=== PATIENT | male | born 1965 | race Two or more races ===

== ENCOUNTER 2017-08-06 12:05 | Emergency (ER) | payer OTHER ==
--- NOTE | 2017-08-06 13:43 | RAD ---
Indication: Stepped on a nail. Pulled out. Assess for retained foreign body. Comparison: April 14, 2016 LEFT ankle exam. Technique: AP, lateral, and oblique views LEFT foot. Report: No conspicuous retained foreign body at the plantar aspect of the foot corresponding with the marker indicating the site of clinical concern. Plantar soft tissue swelling noted. Negative for fracture or malalignment. IMPRESSION: No conspicuous retained foreign body evident.
[2017-08-06] MEDS ORDERED: Ciprofloxacin TAB* 500 MG PO ONE (13:56)
[2017-08-06 14:21] VITALS: BP 143/84
--- NOTE | 2017-08-06 14:33 | ED ---
Lynette Christensen Emily, scribed for Emanuel Davis MD on 08/06/17 at 1302 . Lower Extremity - HPI Summary HPI Summary: This patient is a 51 year old M presenting to [facility] with a chief complaint of pain in left foot s/p stepping on nail one hour ago. Nail punctured through the patients sneaker. Pt reports nail went deep into my foot. The patient rates the pain 8/10 in severity. Patient reports having a tetanus shot last year. - History of Current Complaint Chief Complaint: EDExtremityLower Stated Complaint: STEPPED ON NAIL/LT FOOT Time Seen by Provider: 08/06/17 12:26 Hx Obtained From: Patient Mechanism Of Injury: Other - Stepping on nail Onset of Pain: Immediate, Hours Onset/Duration: Still Present Severity Initially: Severe Severity Currently: Severe Pain Intensity: 8 Pain Scale Used: 0-10 Numeric Timing: Constant, Lasting Hours Location: Is Discrete @ - L foot Aggravating Factor(s): Nothing Alleviating Factor(s): Nothing - Allergies/Home Medications Allergies/Adverse Reactions: Allergies Allergy/AdvReac Type Severity Reaction Status Date / Time No Known Allergies Allergy Verified 08/06/17 12:16 PMH/Surg Hx/FS Hx/Imm Hx Previously Healthy: Yes Endocrine/Hematology History: Denies: Hx Anticoagulant Therapy, Hx Diabetes Cardiovascular History: Denies: Hx Congestive Heart Failure, Hx Hypertension Musculoskeletal History: Reports: Other Musculoskeletal History - HISTORY OF BILATERAL KNEE ARTHROSCOPY R/T KNEE DISLOCATION Sensory History: Reports: Hx Contacts or Glasses - GLASSES Denies: Hx Hearing Aid Opthamlomology History: Reports: Hx Contacts or Glasses - GLASSES - Surgical History Surgery Procedure, Year, and Place: 1997 LEFT KNEE ARTHROSCOPIC SURGERY, [facility] [place]. 2002 RIGHT KNEE ARTHROSCOPIC SURGERY, [facility] [place] Hx Anesthesia Reactions: No - Immunization History Date of Tetanus Vaccine: 2016 Infectious Disease History: No Infectious Disease History: Denies: Traveled Outside the [place] in Last 30 Days - Family History Known Family History: Positive: None - Social History Alcohol Use: None Substance Use Type: Reports: None Smoking Status (MU): Light Every Day Tobacco Smoker Review of Systems Negative: Fever Positive: Other - Left foot pain All Other Systems Reviewed And Are Negative: Yes Physical Exam Triage Information Reviewed: Yes Vital Signs On Initial Exam: Initial Vitals Temp Pulse Resp BP Pulse Ox 97.6 F 90 16 123/79 98 08/06/17 12:13 08/06/17 12:13 08/06/17 12:13 08/06/17 12:13 08/06/17 12:13 Vital Signs Reviewed: Yes Appearance: Positive: Well-Appearing, No Pain Distress Skin: Positive: Warm, Skin Color Reflects Adequate Perfusion, Dry, Other - Small puncture wound L foot Head/Face: Positive: Normal Head/Face Inspection Eyes: Positive: Normal ENT: Positive: Normal ENT inspection Neck: Positive: Supple, Nontender Respiratory/Lung Sounds: Positive: Clear to Auscultation, Breath Sounds Present Cardiovascular: Positive: RRR Abdomen Description: Positive: Nontender, Soft Bowel Sounds: Positive: Present Musculoskeletal: Positive: Normal Neurological: Positive: Normal Psychiatric: Positive: Affect/Mood Appropriate Diagnostics - Vital Signs Vital Signs Temp Pulse Resp BP Pulse Ox 08/06/17 12:13 97.6 F 90 16 123/79 98 - Laboratory Lab Statement: Any lab studies that have been ordered have been reviewed, and results considered in the medical decision making process. - Radiology Foot XR Radiology Interpretation Completed By: Radiologist - Foot X-ray read by radiologist reveals No conspicuous retained foreign body evident. ED physician has reviewed this radiology report and agrees. Lower Extremity Course/Dx - Course Course Of Treatment: Mr. Sarabia stepped onto a nail which punctured his right foot through his sneaker. An x-ray showed no fracture of retained F.B. and he was given antibiotic prophylaxis. - Diagnoses Provider Diagnoses: Puncture wound of foot, right Discharge - Discharge Plan Condition: Stable Disposition: HOME Prescriptions: Ciprofloxacin TAB* [Cipro Tab*] 500 mg PO BID #10 tab Patient Education Materials: Puncture Wound (ED) Referrals: Jabier Rosas MD [Primary Care Provider] - 1 Week The documentation as recorded by the Lynette kimball Emily accurately reflects the service I personally performed and the decisions made by me, Emanuel Davis MD.
== END 2017-08-06 14:20 | disposition home or self-care (01) ==
LOC: ED 12:05
DX: S91.331A Puncture wound without foreign body, right foot, initial encounter (principal); M79.672 Pain in left foot; F17.210 Nicotine dependence, cigarettes, uncomplicated; W22.8XXA Striking against or struck by other objects, initial encounter; Y93.89 Activity, other specified; Y92.89 Other specified places as the place of occurrence of the external cause
CPT/HCPCS: 36415; 86703; 99282; A9270-GY